=== PATIENT | female | born 1965 | race Caucasian/White ===

== ENCOUNTER → 2016-10-29 | Outpatient (CLI) | payer OTHER ==
[2016-10-29 17:52] LABS: ALBUMIN 3.8 GM/DL (3.2-5.2); ALBUMIN/GLOBULIN RATIO 1.23 (1.00-1.93); BILIRUBIN,TOTAL 0.4 MG/DL (0.2-1.0); CALCIUM LEVEL 9.6 MG/DL (8.5-10.1); CREATININE FOR GFR 1.89 MG/DL (0.55-1.02); GLOMERULAR FILTRATION RATE 29.7 (>51); POTASSIUM SERUM 4.7 MEQ/L (3.5-5.1); TOTAL PROTEIN 6.9 GM/DL (6.4-8.2)
== END ==
LOC: M WUC 10:53
PROVIDERS: ATTEND Nurse Practitioner Adult Health
DX: R74.8 Abnormal levels of other serum enzymes (principal); G40.909 Epilepsy, unspecified, not intractable, without status epilepticus; E03.9 Hypothyroidism, unspecified